=== PATIENT | female | born 1955 | race Caucasian/White ===

== ENCOUNTER 2017-07-24 17:33 | Emergency (ER) | payer SELFPAY ==
[2017-07-24] MEDS ORDERED: Albuterol-Ipratrop 3 mg / 0.5 (3 ml) UD ONE ×2 (17:42→17:44)
[2017-07-24 17:47] VITALS: BMI 23.3
[2017-07-24] MEDS ORDERED: Sodium Chloride 0.9% 1,000 ML IV STA (17:47)
[2017-07-24] MEDS ORDERED: Albuterol-Ipratrop 3 mg / 0.5 (3 ml) UD IH STA ×2 (17:47→17:49)
[2017-07-24] MEDS ORDERED: Albuterol-Ipratrop 3 mg / 0.5 (3 ml) UD INH STA (17:47)
--- NOTE | 2017-07-24 18:09 | ED PDOC ---
HPI: Asthma Time Seen by Provider: 07/24/17 17:41 Chief Complaint (Provider): Asthma History Per: Patient History/Exam Limitations: no limitations Onset/Duration Of Symptoms: Days (2 weeks) Additional Complaint(s): Pt. with wheezes worsening. Tried nebs at home with minimal relief. No chest pain. Has cough. No abd pain, leg pain, nausea, vomit, diarrhea. No weakness or headaches. No fever. No back pain. Feels like her asthma. Past Medical History Reviewed: Nursing Documentation, Vital Signs Vital Signs: Last Vital Signs Temp Pulse 103 H 07/24/17 17:46 Resp 23 07/24/17 17:46 BP 140/89 07/24/17 17:46 Pulse Ox 97 07/24/17 17:46 - Medical History PMH: Anxiety, Asthma, Depression Denies: Diabetes, Hepatitis, HIV, HTN, Seizures, Sexually Transmitted Disease - Surgical History Surgical History: No Surg Hx - Family History Family History: States: Unknown Family Hx - Social History Current smoker - smoking cessation education provided: No Alcohol: None Drugs: Denies - Home Medications Home Medications: Ambulatory Orders Medication Instructions Recorded Albuterol HFA [Ventolin HFA 90 2 puff INH PRN PRN 12/28/15 mcg/actuation (8 g)] Fluticasone/Salmeterol 500/50 1 puff INH BID 12/28/15 [Advair Diskus 500/50] Montelukast Sodium [Singulair] 10 mg PO DAILY 12/28/15 Albuterol Sulfate [Proair Hfa] 0.09 mg IH Q6H PRN #2 inh 07/24/17 predniSONE [predniSONE Tab] 20 mg PO BID 5 Days tab 07/24/17 - Allergies Allergies/Adverse Reactions: Allergies Allergy/AdvReac Type Severity Reaction Status Date / Time No Known Allergies Allergy Verified 07/24/17 17:49 Review of Systems ROS Statement: Except As Marked, All Systems Reviewed And Found Negative Respiratory: Positive for: Cough, Shortness of Breath, Wheezing Physical Exam - Reviewed Nursing Documentation Reviewed: Yes Vital Signs Reviewed: Yes - Physical Exam Appears: Positive for: Uncomfortable Head Exam: Positive for: ATRAUMATIC, NORMAL INSPECTION, NORMOCEPHALIC Skin: Positive for: Normal Color, Warm, DRY Eye Exam: Positive for: EOMI, Normal appearance, PERRL ENT: Positive for: Normal ENT Inspection. Negative for: Pharyngeal Erythema, Tonsillar Exudate Neck: Positive for: Normal, Painless ROM, Supple Cardiovascular/Chest: Positive for: Regular Rate, Rhythm Respiratory: Positive for: Decreased Breath Sounds, Wheezing (diffuse). Negative for: Accessory Muscle Use Gastrointestinal/Abdominal: Positive for: Normal Exam, Bowel Sounds, Soft. Negative for: Tenderness Back: Positive for: Normal Inspection. Negative for: L CVA Tenderness, R CVA Tenderness Extremity: Positive for: Normal ROM. 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 Negative for: Motor/Sensory Deficits - Laboratory Results Result Diagrams: 07/24/17 18:04 07/24/17 18:04 Interpretation Of Abn Labs: no acute - ECG ECG: Positive for: Interpreted By Me, Viewed By Me ECG Rhythm: Positive for: Normal QRS, Normal ST Segment, Sinus Rhythm O2 Sat by Pulse Oximetry: 97 Pulse Ox Interpretation: Normal - Radiology X-Ray: Interpreted by Me, Viewed By Me X-Ray Interpretation: No Acute Disease - Progress ED Course And Treament: 1924: Stable. AAOx3. Pain free. Tolerated PO. Fu with pcp. Disposition - Clinical Impression Clinical Impression: Asthma - Patient ED Disposition Is Patient to be Admitted: No Counseled Patient/Family Regarding: Studies Performed, Diagnosis, Need For Followup, Rx Given - Disposition Referrals: [facility] [Outside] - 07/27/17 Disposition: Routine/Home Disposition Time: 19:38 Condition: STABLE Additional Instructions: Return if not better in 3 days. Prescriptions: Albuterol Sulfate [Proair Hfa] 0.09 mg IH Q6H PRN #2 inh PRN Reason: Wheezing predniSONE [predniSONE Tab] 20 mg PO BID 5 Days tab Instructions: Asthma in Adults Print Language: KINYARWANDA
[2017-07-24 18:18] LABS: BASO % 0.3 % (0.0-2.0); EOS # 0.5 K/uL (0.0-0.7); EOS % 5.4 % (0.0-4.0); LYMPH # 3.2 K/uL (1.0-4.3); LYMPH % 32.6 % (20.0-40.0); MEAN CELL VOLUME 90.7 fl (81.0-99.0); MEAN CORPUSCULAR HEMOGLOBIN 30.4 pg (27.0-31.0); MEAN CORPUSCULAR HGB CONC 33.5 g/dL (33.0-37.0); MEAN PLATELET VOLUME 7.8 fl (7.2-11.7); MONO # 0.8 K/uL (0.0-0.8); MONO % 8.2 % (0.0-10.0); NEUT # 5.2 K/uL (1.8-7.0); NEUT % 53.5 % (50.0-75.0); NRBC % 0.2 % (0.0-0.0); RBC 5.25 Mil/uL (3.80-5.20); RED CELL DISTRIBUTION WIDTH 13.5 % (11.5-14.5); WHITE BLOOD COUNT 9.7 K/uL (4.8-10.8)
[2017-07-24 18:21] LABS: ABG ALLEN TEST YES; ARTERIAL BLOOD GAS HCO3 26.5 mmol/L (21-28); ARTERIAL BLOOD GAS O2 SAT 100.9 % (95-98); ARTERIAL BLOOD GAS PCO2 36 mm/Hg (35-45); ARTERIAL BLOOD GAS PH 7.46 (7.35-7.45); ARTERIAL BLOOD GAS PO2 126 mm/Hg (80-100); ARTERIAL BLOOD GAS TCO2 26.7 mmol/L (22-28)
--- NOTE | 2017-07-24 18:29 | RAD ---
HISTORY: Sepsis Patient COMPARISON: Comparison is made with the previous study dated 01/06/2014 FINDINGS: LUNGS: No active pulmonary disease. PLEURA: No significant pleural effusion identified, no pneumothorax apparent. CARDIOVASCULAR: Normal. OSSEOUS STRUCTURES: No significant abnormalities. VISUALIZED UPPER ABDOMEN: Normal. OTHER FINDINGS: None. IMPRESSION: No active disease.
[2017-07-24 18:32] LABS: ALB/GLOB RATIO 1.4 (1.0-2.1); ALBUMIN 4.4 g/dL (3.5-5.0); ALT/SGPT 34 U/L (9-52); AST/SGOT 28 U/L (14-36); BLOOD UREA NITROGEN 16 mg/dl (7-17); CALCIUM 9.9 mg/dL (8.4-10.2); GFR AFRICAN-AMERICAN > 60; GFR NON-AFRICAN AMERICAN > 60; MAGNESIUM 2.2 MG/DL (1.6-2.3)
[2017-07-24 18:37] VITALS: TEMP 97.6
[2017-07-24 18:41] LABS: PROTHROMBIN TIME 35.4 Seconds (9.8-13.1)
[2017-07-24 18:42] LABS: INR 0.9 (0.9-1.2); PARTIAL THROMBOPLASTIN TIME 9.9 Seconds (25.6-37.1)
[2017-07-24 19:34] VITALS: RESP 18
[2017-07-24 20:17] VITALS: BP 136/78; PULSE 91; O2SAT 96
--- NOTE | 2017-07-25 19:14 | CARD ---
APPROVED REPORT EKG Measurement Heart [id number] <Conclusion> Sinus tachycardia with short AK Nonspecific ST and T wave abnormality Abnormal ECG
== END 2017-07-24 20:02 | disposition home or self-care (01) ==
LOC: H.ER 17:33
DX: J45.909 Unspecified asthma, uncomplicated (principal); F32.9 Major depressive disorder, single episode, unspecified; F41.9 Anxiety disorder, unspecified
CPT/HCPCS: 71045; 80053; 82803; 83735; 83880; 84100; 84484; 85025; 85610; 85730; 87040; 87804; 93005; 94640; 96361; 96374; 99284; J2930; J7040

== ENCOUNTER 2018-08-20 15:51 | Emergency (ER) | payer OTHER ==
[2018-08-20 16:10] VITALS: BMI 26.7
--- NOTE | 2018-08-20 18:04 | ED PDOC ---
HPI: Abdomen Time Seen by Provider: 08/20/18 16:49 Chief Complaint (Nursing): Abdominal Pain Chief Complaint (Provider): Abdominal pain History Per: Patient Additional Complaint(s): 63 yo female, PMH of urterin fibroids, presents to ED with complaints of recal bleeding x 2 episodes today. Pt denies any rectal pain or abdominal pain. notes BRBPR in bowl and when wiping. NO abdominal pain. Past Medical History Reviewed: Nursing Documentation, Vital Signs Vital Signs: Last Vital Signs Temp 98.1 F 08/20/18 16:09 Pulse 87 08/20/18 16:09 Resp 18 08/20/18 16:09 BP 134/84 08/20/18 16:09 Pulse Ox 95 08/20/18 16:09 - Medical History PMH: Anxiety, Arthritis, Asthma, Depression Denies: Diabetes, Hepatitis, HIV, HTN, Seizures, Sexually Transmitted Disease - Surgical History Surgical History: No Surg Hx - Family History Family History: States: Unknown Family Hx - Home Medications Home Medications: Ambulatory Orders Medication Instructions Recorded Albuterol HFA [Ventolin HFA 90 2 puff INH PRN PRN 12/28/15 mcg/actuation (8 g)] Fluticasone/Salmeterol 500/50 1 puff INH BID 12/28/15 [Advair Diskus 500/50] Montelukast Sodium [Singulair] 10 mg PO DAILY 12/28/15 Albuterol Sulfate [Proair Hfa] 0.09 mg IH Q6H PRN #2 inh 07/24/17 predniSONE [predniSONE Tab] 20 mg PO BID 5 Days tab 07/24/17 Docusate [Colace] 100 mg PO DAILY #10 cap 08/20/18 - Allergies Allergies/Adverse Reactions: Allergies Allergy/AdvReac Type Severity Reaction Status Date / Time No Known Allergies Allergy Verified 08/20/18 16:15 Review of Systems ROS Statement: Except As Marked, All Systems Reviewed And Found Negative Physical Exam - Reviewed Nursing Documentation Reviewed: Yes Vital Signs Reviewed: Yes - Physical Exam Appears: Positive for: Well, Non-toxic, No Acute Distress Head Exam: Positive for: ATRAUMATIC, NORMAL INSPECTION, NORMOCEPHALIC Skin: Positive for: Normal Color, Warm, DRY Eye Exam: Positive for: EOMI, Normal appearance, PERRL ENT: Positive for: Normal ENT Inspection Neck: Positive for: Normal, Painless ROM Cardiovascular/Chest: Positive for: Regular Rate, Rhythm Respiratory: Positive for: CNT, Normal Breath Sounds Gastrointestinal/Abdominal: Positive for: Normal Exam, Soft Back: Positive for: Normal Inspection Rectal: Positive for: Stool Is Heme: ((-)), Tenderness ((+) scalp on rectum) Extremity: Positive for: Normal ROM Neurological/Psych: Positive for: Awake, Alert, Normal Tone - ECG O2 Sat by Pulse Oximetry: 95 Medical Decision Making Medical Decision Making: Pt noted to have small tear on rectum. Source of rectal bleeding explained. Advised high fiber diet, lots of fluids, started on Colace as well. Disposition - Clinical Impression Clinical Impression: Back pain, Rectal bleeding - Patient ED Disposition Is Patient to be Admitted: No - Disposition Disposition: Routine/Home Disposition Time: 18:00 Condition: STABLE Prescriptions: Docusate [Colace] 100 mg PO DAILY #10 cap Instructions: Bloody Stools Forms: [employer] ([place])
[2018-08-20 18:54] VITALS: BP 130/82; PULSE 84; RESP 16; TEMP 98
[2018-08-20 19:56] VITALS: O2SAT 95
== END 2018-08-20 18:56 | disposition home or self-care (01) ==
LOC: H.ER 15:51
DX: K62.5 Hemorrhage of anus and rectum (principal); M54.9 Dorsalgia, unspecified; F41.9 Anxiety disorder, unspecified
CPT/HCPCS: 96372; 99282; J1885

== ENCOUNTER 2018-10-13 11:07 | Emergency (ER) | payer OTHER ==
[2018-10-13 11:13] VITALS: BMI 25.9
[2018-10-13] MEDS ORDERED: Silver Sulfadiazine 1% CREAM (50 gm) TOP STA (11:43)
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
[2018-10-13] MEDS ORDERED: Silver Sulfadiazine 1% CREAM (50 gm) ONE (12:04)
[2018-10-13 13:44] VITALS: BP 120/70; PULSE 90; RESP 16; TEMP 98.9; O2SAT 99
== END 2018-10-13 12:55 | disposition home or self-care (01) ==
LOC: H.ER 11:07
DX: T21.21XA Burn of second degree of chest wall, initial encounter (principal); T21.23XA Burn of second degree of upper back, initial encounter

== ENCOUNTER 2018-10-18 12:00 | Emergency (ER) | payer OTHER ==
[2018-10-18 12:01] VITALS: BMI 25.9
[2018-10-18] MEDS ORDERED: Silver Sulfadiazine 1% Cream (20 gm) TOP STA (13:30)
[2018-10-18] MEDS ORDERED: Tdap Vaccine 0.5 ml Vial (10-64 yrs) IM ONE ×2 (13:32→13:41)
[2018-10-18] MEDS ORDERED: Silver Sulfadiazine 1% CREAM (50 gm) ONE (13:40)
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
[2018-10-18 15:29] VITALS: BP 122/70; PULSE 72; RESP 18; TEMP 98
[2018-10-19 14:45] VITALS: O2SAT 97
== END 2018-10-18 15:28 | disposition home or self-care (01) ==
LOC: H.ER 12:00
DX: T21.21XA Burn of second degree of chest wall, initial encounter (principal); T23.272A Burn of second degree of left wrist, initial encounter; Z48.00 Encounter for change or removal of nonsurgical wound dressing; Z86.59 Personal history of other mental and behavioral disorders; J45.909 Unspecified asthma, uncomplicated; Z23 Encounter for immunization

== ENCOUNTER 2018-10-27 14:54 | Emergency (ER) | payer SELFPAY ==
[2018-10-27 14:54] VITALS: BMI 25.9
[2018-10-27] MEDS ORDERED: Bacitracin 500 Units/gm Oint Foilpak UD TOP STA (15:38)
[2018-10-27] MEDS ORDERED: Albuterol-Ipratrop 3 mg / 0.5 (3 ml) UD INH STA (15:51)
[2018-10-27] MEDS ORDERED: Albuterol-Ipratrop 3 mg / 0.5 (3 ml) UD ONE (15:53)
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
[2018-10-27] MEDS ORDERED: Bacitracin 500 Units/gm Oint Foilpak UD ONE (16:23)
[2018-10-27 16:58] VITALS: BP 123/80; PULSE 79; RESP 18; TEMP 98.3
[2018-10-28 12:35] VITALS: O2SAT 96
== END 2018-10-27 16:45 | disposition home or self-care (01) ==
LOC: H.ER 14:54
DX: J45.909 Unspecified asthma, uncomplicated (principal); M79.642 Pain in left hand